=== PATIENT | male | born 1965 | race Native Hawaiian/Other Pacific Islander ===

== ENCOUNTER 2022-04-25 21:31 | Emergency (ER) | payer OTHER ==
[~2022-04-25] VITALS: Ht 177.8 cm; Wt 113.6 kg
[2022-04-25 22:21] LABS: COVID AG,FIA SOURCE NASAL SWAB
[2022-04-25 22:43] LABS: INFLUENZA TYPE B NEGATIVE FOR TYPE B (NEGATIVE)
[2022-04-25 23:03] LABS: INFLUENZA TYPE A POSITIVE FOR TYPE A (NEGATIVE)
[2022-04-25 23:26] VITALS: BP 128/81
[2022-04-25] MEDS ORDERED: ONDA-104 PO ×2 (23:37→23:49)
[2022-04-25] MEDS ORDERED: ACET-66 PO ×2 (23:37→23:49)
[2022-04-25] MEDS ORDERED: IBUP-2070 PO ×2 (23:37→23:49)
[2022-04-25] MEDS ORDERED: BENZ-70 PO ×2 (23:37→23:49)
[2022-04-25] MEDS ORDERED: BENZ1LOZ77 PO ×2 (23:37→23:49)
== END 2022-04-25 23:57 | disposition home or self-care (01) ==
LOC: EMS 21:32
DX: J10.1 Influenza due to other identified influenza virus with other respiratory manifestations (principal); E11.9 Type 2 diabetes mellitus without complications; I10 Essential (primary) hypertension; H91.90 Unspecified hearing loss, unspecified ear; Z20.822 Contact with and (suspected) exposure to COVID-19
CPT/HCPCS: 82962; 87804; 99283

== ENCOUNTER 2024-03-20 10:47 | Emergency (ER) | payer OTHER ==
[~2024-03-20] VITALS: Ht 180.3 cm; Wt 95.0 kg
[~2024-03-20 10:47] MED LIST: ACET-66 PO; BENZ-227 PO; BENZ1LOZ50 PO; IBUP-1492 PO; ONDA-104 PO
[2024-03-20 10:52] VITALS: BP 158/101; PULSE 99; RESP 18; TEMP 98.2; O2SAT 98
[2024-03-20] MEDS: SILVER SULFADIAZINE 1% 25 GM CREAM TP ONE (13:09)
[2024-03-20] MEDS: PERTUSS(ACELL),DIPH,TET/PF 0.5 ML SYRINGE [ADULT] IM. ONE (13:12)
== END 2024-03-20 14:55 | disposition home or self-care (01) ==
LOC: EMS 10:47
DX: T24.201A Burn of second degree of unspecified site of right lower limb, except ankle and foot, initial encounter (principal); T31.0 Burns involving less than 10% of body surface; E11.9 Type 2 diabetes mellitus without complications; I10 Essential (primary) hypertension; X08.8XXA Exposure to other specified smoke, fire and flames, initial encounter; Y93.89 Activity, other specified; Y92.89 Other specified places as the place of occurrence of the external cause; Y99.8 Other external cause status
CPT/HCPCS: 16000; 16020; 82962; 90471; 90715; 99283